=== PATIENT | male | born 1980 | race Caucasian/White ===

== ENCOUNTER 2024-02-05 04:40 | Emergency (ER) | payer OTHER, SELFPAY ==
[2024-02-05] VITALS (26 sets, daily range): BP systolic 105–147; BP diastolic 67–98; BMI 28.9
[2024-02-05 05:17] LABS: % Basophils 0.4 % (0-2); % Eosinophils 5.6 % (0-6); % Immature Granulocytes 0.7 % (0-0.5); % Lymphocytes 30.2 % (20.5-51.1); % Monocytes 9.6 % (1.7-9.3); % Neutrophils 53.5 % (42.2-75.2); Absolute Eosinophils 0.6 10^3/uL (0-0.7); Absolute Immature Granulocytes 0.1 10^3/uL (0-0.05); Absolute Lymphocytes 3.2 10^3/uL (1.2-3.4); Absolute Neutrophils 5.6 10^3/uL (1.4-6.5); Hematocrit 44.2 % (39.0-52.0); Hemoglobin 15.7 g/dL (13.0-18.0); Mean Corp Hgb Conc. 35.5 g/dL (33.0-37.0); Mean Corpuscular Hgb 29.7 pg (27.0-31.0); Mean Corpuscular Volume 83.6 fL (80.0-94.0); Mean Platelet Volume 9.5 fL (7.4-10.4); Nucleated Red Blood Cells % 0 % (-); Platelet Count 244 10^3/uL (130-400); Red Blood Cell Count 5.29 10^6/uL (4.70-6.10); Red Cell Dist. Width 13.7 % (11.5-14.5); White Blood Cell Count 10.5 10^3/uL (4.8-10.8)
[2024-02-05 05:31] LABS: ALT (SGPT) 32 U/L (0-50); AST (SGOT) 36 U/L (17-59); Albumin 4.9 g/dl (3.5-5.0); Alkaline Phosphatase 70 U/L (38-126); Blood Urea Nitrogen 17 mg/dl (9-20); Calcium 10.1 mg/dl (8.4-10.2); Carbon Dioxide 21 mmol/L (22-30); Chloride 104 mmol/L (98-107); Estimated Creatinine Clearance 108 ml/min; Glucose 108 mg/dl (70-99); Magnesium 2.4 mg/dl (1.6-2.3); Potassium 3.8 mmol/L (3.5-5.1); Sodium 140 mmol/L (135-145); Total Bilirubin 0.7 mg/dl (0.2-1.3); Total Protein 8.1 g/dl (6.3-8.2); eGFR > 60.00
[2024-02-05 05:40] LABS: Troponin I < 0.012 ng/ml
[2024-02-05 06:04] LABS: TSH Reflex To Free T4 2.67 uIU/ml (0.47-4.68)
--- NOTE | 2024-02-05 06:08 | ED.GENMED ---
History of Present Illness
General
Chief Complaint: Chest Pain
Source: patient
Exam Limitations: none
Time Seen by Provider: 02/05/24 05:59
Travel History
Have you had any contact with someone who has COVID-19?: No
Do you have any symptoms of coronavirus? Fever > 100 degrees, chills, cough, shortness of breath, sore throat, loss of taste or smell, muscle aches, or headache?: No
History of Present Illness
History of Present Illness:
See MDM
Past History
Past History
ED Past Medical History: Hypercholesterolemia
ED Past Surgical History: None
Social History
Tobacco: Non-smoker
Alcohol: None
Phy Exam
Physical Exam
Physical Exam:
See MDM
Scores
[id number] Score for Afib Stroke Risk
Age in Years (65=0, 65-74=1, >/=75=2): <65
Sex (Female=+1): Male
Congestive Heart Failure History (Yes=+1): No
Hypertension History (Yes=+1): No
Stroke/TIA/Thromboembolism History (Yes=+2): No
Vascular Disease History (Yes=+1): No
Diabetes Mellitus (Yes=+1): No
Score: 0
Anticoagulation Recommendations: Anticoagulation not indicated (as validated in nonvalvular afib). Consider anticoagulation irrespective of score in patients with HCM
Heart Score for Chest Pain Patients
STEMI patient?: Not applicable
Course
Orders/Labs/Results
Orders:
Orders
02/05/24 04:42
EKG [Electrocardiogram (*1)] Urgent
Reason for Study: Chest Pain
EKG- Treatment ONCE
02/05/24 05:10
Complete Blood Count/With Diff Urgent
Comprehensive Metabolic Panel Urgent
Magnesium Urgent
TSH Reflex To Free T4 Urgent
Troponin I Urgent
02/05/24 06:07
Diltiazem HCl [Cardizem] 20 mg IV NOW STA
02/05/24 06:48
0.9% Sodium Chloride 1000 ml [Nss] 1,000 ml IV BOLUS
02/05/24 09:20
Electrocardiogram (*1) Urgent
Reason for Study: Palpitations
EKG- Treatment ONCE
Metoprolol Xl [Toprol Xl] 25 mg PO NOW STA
Abnormal Lab Results
02/05/24
05:10
Abs Immat Gran (auto) 0.1 H 10^3/uL
(0-0.05)
Absolute Monos (auto) 1.0 H 10^3/uL
(0.1-0.6)
Immature Gran % 0.7 H %
(0-0.5)
Monocytes % 9.6 H %
(1.7-9.3)
Carbon Dioxide 21 L mmol/L
(22-30)
Glucose 108 H mg/dl
(70-99)
Magnesium 2.4 H mg/dl
(1.6-2.3)
02/05/24 05:10
02/05/24 05:10
Vital Signs
Initial and Last Documented VS:
Initial Vital Signs
Temp Pulse Resp BP Pulse Ox
98.3 F 105 18 145/98 96
02/05/24 04:47 02/05/24 04:47 02/05/24 04:47 02/05/24 04:47 02/05/24 04:47
Last Documented Vital Signs
Temp Pulse Resp BP Pulse Ox
98.3 F 78 20 121/75 97
02/05/24 04:47 02/05/24 09:34 02/05/24 08:00 02/05/24 09:34 02/05/24 08:00
MDM/Problems Addressed
Differential Diagnosis Includes:
HPI and MDM Narrative:
43-year-old male presenting for evaluation of palpitations. Patient noted that his heart was fluttering last night. He denies chest pain or shortness of breath. He noticed the symptoms were worsening this morning and he checked his Apple Watch
which read A-fib. He denies a history of A-fib. Denies chest pain, shortness of breath or leg swelling.
Patient's [id number] score is 0. He is intermittently rate controlled and intermittently A-fib with RVR. Will give dose of Cardizem and discussed case with cardiology
Physical exam
General: Well appearing and non-toxic
HEENT: protecting airway
Neck: appears supple
CV: No evidence of cyanosis. Tachycardic and irregular
Resp: No accessory muscle use. Lungs clear
Abd: Non-distended
Extremities: No deformities. No leg edema or tenderness
Neuro: alert
Psych: Normal affect
Skin: Intact
Problems Addressed including Acute and Chronic Conditions affecting care:
1. A-fib
Acuity: acute
Prognosis: stable
Details: Electrolytes within normal limits. Will give dose of Cardizem
Updates
6:45 AM after bolus of Cardizem, patient now rate controlled. He states he is feeling somewhat better. Will continue to monitor and discussed case with cardiology whether to cardiovert and anticoagulate versus rate control medication and close
follow-up
Cardiology is comfortable with cardioversion. However, patient did auto convert. Patient loaded with Toprol XL and we discussed baby aspirin and follow-up with cardiology
Differential Diagnosis (but not limited to): Hypothyroidism, A-fib
Testing considered: D-dimer but he denies chest pain or shortness of breath
Drug therapy (if applicable): OTC meds, please see d/c instruction regarding Rx drugs
Amount and/or Complexity of Data Reviewed
Clinical info obtained from: Patient
External data reviewed: N/A
Labs I independently reviewed (but not limited to): Troponin normal, TSH normal
Radiology: N/A
Pulse Ox: not hypoxic
EKG independently reviewed: A-fib with RVR, normal axis, no STEMI
Grief Counselor: A-fib
Critical Care: N/A
Risk of Complication:
Social Determinants of health: Good social support
Discussed with other providers: cardiology
Escalation of Care includes Admit/Obs: After being observed in the Emergency Department, pt stable for discharge.
Occasional wrong word or 'sound a like' substitutions may have occurred due to the inherent limitations of voice recognition software. Read the chart carefully and recognize, using context, where substitutions have occurred.
*Critical Care Note
Total Time (30-74mins, 75-104mins- exclusive of procedures): Not Applicable
ED Attending Note
-
Portions of this chart may have been created with voice recognition software.� Occasional wrong word or��sound alike� substitutions may have occurred due to the inherent limitations of voice recognition software.
Discharge Plan
Departure
Patient Disposition: Home (Routine Discharge)
Date of Disposition: 02/05/24
Time of Disposition: 09:54
Patient with high blood pressure during this ER visit?: No
Discharge Problem:
New onset a-fib
Instructions: Atrial Fibrillation (DC), Chest Pain DCA Follow Up
Prescriptions:
New
metoprolol succinate [Toprol XL] 25 mg tablet extended release 24 hr
25 mg PO BID Qty: 60 0RF
No Action
rosuvastatin 20 mg Tablet
20 mg PO HS
Referrals:
Cezar Devi MD [Active] -
Scot Curiel DO [Family Provider] -
Activity Restrictions/Additional Instructions:
Please return for any worsening symptoms.
You may return at any time if you have further concerns.
Please follow up with your doctor at the first available appointment, preferably this week.
You were placed on the cardiac callback tracker. Someone from their office should call you in the next few days. If you do not hear from them in the next few days, please give them a call.
Please start taking the metoprolol 25 mg twice a day. If you develop weakness, dizziness or if your heart rate drops below 60 beats per minute, change the prescription to 25 mg once a day. If you continue with the symptoms, you may split the pill
in half and take 12.5 mg once a day. Please start taking a baby aspirin daily.
Thank you for choosing [facility].
Interventions
Interventions:
*Risk Screen - Suicide Last Done: 02/05/24 05:08
*General Assessment Last Done: 02/05/24 05:08
*Neglect/Abuse Screening Last Done: 02/05/24 05:08
ED- Fall Risk Assessment Last Done: 02/05/24 05:32
*ED COVID-19 Vaccine History Last Done: 02/05/24 05:08
ED- Cardiac Assessment Last Done: 02/05/24 07:03
Discharge Date and Time
Print Language: [id number]
[2024-02-05] MEDS: CARDIZEM 20 MG IV (06:28)
[2024-02-05] MEDS: NSS 1000 IV (06:59)
[2024-02-05] MEDS: TOPROL XL 25 MG PO (09:34)
== END 2024-02-05 10:18 | disposition home or self-care (01) ==
LOC: EMR 04:40
PROVIDERS: Emergency Medicine; EMERGENCY PHYSICIAN Student in an Organized Health Care Education/Training Program; FAMILY PHYSICIAN Family Medicine
DX: I48.91 Unspecified atrial fibrillation (principal)
CPT/HCPCS: 99284; 96374; 96361; 80053; 83735; 84443; 84484; 85025; 93005

== ENCOUNTER → 2024-02-24 11:07 | Outpatient (REF) | payer OTHER, SELFPAY | LOC: DHCBS HW 11:07 | PROVIDERS: ATTENDING PHYSICIAN Internal Medicine Cardiovascular Disease; FAMILY PHYSICIAN Family Medicine | DX: I48.0 Paroxysmal atrial fibrillation (principal) | CPT/HCPCS: 93306 ==